=== PATIENT | female | born 1950 | race Caucasian/White ===

== ENCOUNTER → 2016-05-07 | Outpatient (CLI) | payer BC, MEDICARE ==
[~2016-05-07] MED LIST: APRISO0.375 GM PO; PREDNISONE20 MG PO; VENTOLIN0.09 MG IH
== END ==
LOC: MC.RAD 13:32
DX: Z12.31 Encounter for screening mammogram for malignant neoplasm of breast (principal)

== ENCOUNTER → 2019-02-01 | Outpatient (CLI) | payer BC | LOC: MC.RAD 10:23 | DX: Z12.31 Encounter for screening mammogram for malignant neoplasm of breast (principal) ==

== ENCOUNTER → 2021-04-01 | Outpatient (CLI) | payer BC | LOC: MC.RAD 13:05 | DX: Z12.31 Encounter for screening mammogram for malignant neoplasm of breast (principal) ==

== ENCOUNTER → 2023-06-16 | Outpatient (CLI) | payer MEDICARE | LOC: MC.RAD 13:03 | DX: Z12.31 Encounter for screening mammogram for malignant neoplasm of breast (principal) ==

== ENCOUNTER 2023-08-09 15:18 | Inpatient (IN) | payer MEDICARE, BC ==
[~2023-08-09] VITALS: Ht 160 cm; Wt 55.0 kg
[~2023-08-09 15:18] MED LIST changes: +PREDNISONE10 MG PO; -PREDNISONE20 MG PO
[2023-08-09 15:33] VITALS: BP 102/66; PULSE 67; TEMP 97.7
[2023-08-09] MEDS ORDERED: VITAMIN D31000 IU PO (15:57)
[2023-08-09] MEDS ORDERED: NS 1,000 ML IV SCH (16:15)
[2023-08-09] MEDS ORDERED: Acetaminophen 500 MG TAB PO PRN (16:15)
[2023-08-09] MEDS ORDERED: Ondansetron 4 MG/2 ML VIAL IV PRN (16:15)
[2023-08-09] MEDS ORDERED: methylPREDNISolone Sod Succ 125 MG/2 ML VIAL IV SCH (16:15)
--- NOTE | 2023-08-09 16:29 | NUR ---
pt arrived to floor at 1525. pt was direct admit from home. alert and orientedx4. no complaints of pain at this time but pain is in the lower abdomen when it does come and is usally about a 6 or 7/10. assessed pt. no skin issues. no other complaints at this time. call light within reach.
[2023-08-09 16:37] VITALS: BP_SYST 102
[2023-08-09] MEDS ORDERED: oxyCODONE 5 MG TAB PO PRN (16:45)
[2023-08-09 17:28] LABS: HEMOGLOBIN 11.3 g/dl (12.5-16.0); MEAN CELL VOLUME 85 fl (80.0-100.0); MEAN CORPUSCULAR HEMOGLOBIN 28 pg (27-31); MEAN CORPUSCULAR HGB CONC 32 g/dl (33.0-37.0); MEAN PLATELET VOLUME 9.3 fl (7.4-10.4); PLATELET COUNT 441 K/mm3 (130-400); RED BLOOD COUNT 4.11 M/mm3 (4.10-5.30); REDCELL DISTRIBUTION WIDTH-CV 13.6 % (11.5-14.5)
[2023-08-09 17:32] LABS: HEMATOCRIT 34.9 % (37.0-47.0)
--- NOTE | 2023-08-09 17:41 | NUR ---
1300-DR. LAWSON CALLED REQUESTING TO SPEAK WITH HOSPITALIST FOR POSSIBLE DIRECT ADMISSION FOR PATIENT DUE TO FAILED OUTPATIENT TREATMENT FOR ULCERATIVE COLITIS. CALL TRANSFERRED TO DR. HANSON WHO ACCEPTS PATIENT FOR INPATIENT STATUS. PATIENT WILL COME VIA POV FROM HOME.
[2023-08-09 17:53] LABS: ERYTHROCYTE SEDIMENTATION RATE 15 mm/hr (0-30)
[2023-08-09 17:54] LABS: ALBUMIN 2.5 g/dL (3.4-4.8); BILIRUBIN,TOTAL 0.7 mg/dL (0.2-1.2); C-REACTIVE PROTEIN 4.78 mg/dL (0.00-0.50); CALCIUM 9.7 mg/dL (8.4-10.2); CREATININE, serum 0.83 mg/dL (0.57-1.11); MAGNESIUM 1.9 mg/dL (1.6-2.6); POTASSIUM 4.1 mEq/L (3.5-4.5); TOTAL PROTEIN 5.9 g/dl (6.2-8.1)
[2023-08-09 18:02] LABS: BAND 2 % (0-10); LYMPHOCYTE 9 % (20.0-51.0); NEUTROPHILS 88 % (42.0-75.2)
[2023-08-09 18:03] LABS: PLATELET ESTIMATE INCREASED (NORMAL)
[2023-08-09 19:36] VITALS: BP 112/69; PULSE 60; TEMP 98
[2023-08-09 20:28] VITALS: BP_SYST 112
--- NOTE | 2023-08-09 20:32 | NUR ---
PT A&O X4 LAYING IN BED. VSS. PT REPORTS X4 LOOSE STOOLS IN THE LAST HOUR, PT REPORTS THIS IS HER NORMAL. DENIES PAIN OR N/V. NS AT 100ML/HR INFUSING TO LEFT AC. PT DENYING FURTHER NEEDS. CALL LIGHT IN REACH
[2023-08-09] MEDS ORDERED: Melatonin 3 MG TAB PO SCH (21:00)
[2023-08-09 23:50] VITALS: BP 103/60; PULSE 52; TEMP 97.6
[2023-08-10] VITALS (12 sets, daily range): BP systolic 93–122; BP diastolic 47–70; PULSE 48–82; TEMP 97.7–98.5
--- NOTE | 2023-08-10 05:27 | NUR ---
PT LAYING IN BED. REPORTS NOT SLEEPING AT ALL. DENYING PAIN OR N/V. PT STATES SHE HAD 3 MORE WATERY SLOAN STOOLS THROUGHOUT THE NIGHT, STATES THEY ARE DECREASING IN AMOUNT. DENYING OTHER NEEDS. CALL LIGHT IN REACH
[2023-08-10 06:28] LABS: BASO % 0.3 % (0.0-2.0); GRAN # 5.8 K/mm3 (1.4-6.5); GRAN % 77.7 % (42.2-75.2); HEMOGLOBIN 11.8 g/dl (12.5-16.0); LYMPH # 1.1 K/mm3 (1.2-3.4); LYMPH % 14.2 % (20.0-51.0); MEAN CELL VOLUME 86 fl (80.0-100.0); MEAN CORPUSCULAR HEMOGLOBIN 28 pg (27-31); MEAN CORPUSCULAR HGB CONC 33 g/dl (33.0-37.0); MEAN PLATELET VOLUME 9.6 fl (7.4-10.4); MONO # 0.5 K/mm3 (0.1-0.6); MONO % 7.3 % (1.7-9.3); PLATELET COUNT 488 K/mm3 (130-400); RED BLOOD COUNT 4.22 M/mm3 (4.10-5.30); REDCELL DISTRIBUTION WIDTH-CV 13.8 % (11.5-14.5)
[2023-08-10 06:37] LABS: HEMATOCRIT 36.1 % (37.0-47.0)
[2023-08-10 06:42] LABS: CALCIUM 9.4 mg/dL (8.4-10.2); CREATININE, serum 0.81 mg/dL (0.57-1.11); POTASSIUM 4.3 mEq/L (3.5-4.5)
--- NOTE | 2023-08-10 08:43 | NUR ---
PT RESTING IN BED, ALERT AND ORIENTEDX4. NO COMPLAINTS OF PAIN AT THIST TIME. PT STATES SHE HAS BEEN A LITTLE NAUSEOUS OFF AND ON BUT NOT ENOUGH TO NEED ANY MEDS. PT STATES SHE HAD SEVERAL BOWEL MOVEMENTS OVER NIGHT AND HAS HAD ONE SINCE 0700. BOWEL MOVEMENTS ARE LIQUID AND BLOODY. PT TOLERATED BREAKFAST. ASSESSED PT. NO MEDS TO GIVE. IV FLUIDS RUNNING. NO OTHER COMPLAINTS AT THIS TIME. CALL LIGHT WITHIN REACH.
--- NOTE | 2023-08-10 10:20 | NUR ---
GAVE REPORT TO MEDICAL NURSEMc ESCORTED PT TO ROOM 318.
--- NOTE | 2023-08-10 10:45 | NUR ---
PT ESCORTED TO ROOM FROM SURGICAL, BELONGINGS AT BEDSIDE. NS RUNNING AT 100 MLS/HR IN LEFT AC. PT DENIES PAIN AT THIS TIME. PT REPORTS JUST HAVING A LARGE LOOSE BOWEL MOVEMENT, DENIES BLOOD AND STATES THAT ABDOMEN WAS PAINFUL BEFORE BOWEL MOVEMENT AND FELT RELIEF AFTER. PT INDEPENDENT IN ROOM, GAIT STEADY AND DENIES NEEDS AT THIS TIME. BED IN LOWEST POSITION, CALL LIGHT IN REACH
--- NOTE | 2023-08-10 16:14 | NUR ---
Flight Mechanic met with patient to discuss discharge planning. Patient lives in [place] with her , Lm (ph#[phone]) and sees Dr. Mooney for primary care. Patient gets medications from [facility] and can normally afford them, however she stated she is going to be started on an expensive medication soon that they are awaiting prior auth on. Patient has a cane that she uses as needed and is normally independent with ADLS. Patient does not have DPOA-HC and is not interested in one at this time. Discharge Plan: Home
--- NOTE | 2023-08-10 22:10 | NUR ---
PATIENT RESTING IN BED WITH ALL LIGHTS OFF WITH TV OFF WITH NO FAMILY PRESENT WITH NO ACUTE DISTRESS NOTED. PATIENT EASILY AROUSED. PATIENT ON ROOM AIR. NS INFUSING INTO LEFT AC WITH NO COMPLICATIONS NOTED. ASSESSMENT AND MEDICATION ADMINISTRATION COMPLETED AT THIS TIME. PATIENT REFUSED MELATONIN. PATIENT TOLERATED WELL. PATIENT DENIES ANY OTHER NEEDS AT THIS TIME. BED IN LOW POSITION IH WHEELS LOCKED WITH RAILS UP X3 AND CALL LIGHT WITHIN REACH.
[2023-08-11] VITALS (9 sets, daily range): BP systolic 97–129; BP diastolic 52–70; PULSE 47–62; TEMP 97.7–98.3
[2023-08-11 06:18] LABS: HEMOGLOBIN 10.5 g/dl (12.5-16.0); MEAN CELL VOLUME 85 fl (80.0-100.0); MEAN CORPUSCULAR HEMOGLOBIN 27 pg (27-31); MEAN CORPUSCULAR HGB CONC 32 g/dl (33.0-37.0); MEAN PLATELET VOLUME 9.9 fl (7.4-10.4); PLATELET COUNT 393 K/mm3 (130-400); RED BLOOD COUNT 3.86 M/mm3 (4.10-5.30); REDCELL DISTRIBUTION WIDTH-CV 13.7 % (11.5-14.5)
[2023-08-11 06:21] LABS: HEMATOCRIT 32.7 % (37.0-47.0)
[2023-08-11 06:33] LABS: CALCIUM 9.3 mg/dL (8.4-10.2); CREATININE, serum 0.68 mg/dL (0.57-1.11); POTASSIUM 4.3 mEq/L (3.5-4.5)
[2023-08-11 07:17] LABS: BAND 51 % (0-10); LYMPHOCYTE 10 % (20.0-51.0); NEUTROPHILS 30 % (42.0-75.2); PLATELET ESTIMATE NORMAL (NORMAL)
--- NOTE | 2023-08-11 07:45 | NUR ---
Patient up ambulating in the room independently. A&Ox4. VSS. IV CDI, fluids infusing. Denies pain and discomfort. Call light within reach
--- NOTE | 2023-08-11 14:00 | NUR ---
Pencil Maker spoke with patient's RN who advised she is independent in the room.
--- NOTE | 2023-08-11 21:45 | NUR ---
PATIENT RESTING IN BED WITH ALL LIGHT OFF WITH TV OFF WITH NO FAMILY PRESENT WITH NO ACUTE DISTRESS NOTED. PATIENT ALERT & ORIENTED X4. PATIENT ON ROOM AIR. NS INFUSING INTO LEFT AC WITH NO COMPLICATIONS NOTED. ASSESSMENT AND MEDICATION ADMINISTRATION COMPLETED AT THIS TIME. PATIENT TOLERATED WELL. PATIENT DENIES ANY NEEEDS. BED IN LOW POSITION WITH WHEELS LOCKED WITH RAILS UP X3 AND CALL LIGHT WITHIN REACH.
[2023-08-12] VITALS (11 sets, daily range): BP systolic 102–137; BP diastolic 55–71; PULSE 45–56; TEMP 97.6–97.9
[2023-08-12 07:21] LABS: CALCIUM 9.6 mg/dL (8.4-10.2); CREATININE, serum 0.69 mg/dL (0.57-1.11)
[2023-08-12 07:36] LABS: HEMOGLOBIN 11.2 g/dl (12.5-16.0); MEAN CELL VOLUME 86 fl (80.0-100.0); MEAN CORPUSCULAR HEMOGLOBIN 27 pg (27-31); MEAN CORPUSCULAR HGB CONC 32 g/dl (33.0-37.0); MEAN PLATELET VOLUME 10.3 fl (7.4-10.4); PLATELET COUNT 395 K/mm3 (130-400); REDCELL DISTRIBUTION WIDTH-CV 13.8 % (11.5-14.5)
[2023-08-12 07:46] LABS: HEMATOCRIT 35.3 % (37.0-47.0)
[2023-08-12 08:50] LABS: BAND 36 % (0-10); LYMPHOCYTE 12 % (20.0-51.0); METAMYELOCYTE 2 % (0-0); NEUTROPHILS 47 % (42.0-75.2); PLATELET ESTIMATE NORMAL (NORMAL)
--- NOTE | 2023-08-12 10:00 | NUR ---
patient alert and oriented x4. patient denies pain at this time. Patient reports still having bloody stools. patient on room air. IV to left AC flushing well/ no drainage. call light within reach. bed at lowest position.
--- NOTE | 2023-08-12 17:48 | NUR ---
PATIENT HAD A LOSE BROWN BOWEL MOVEMENT NO BRIGHT RED BLOOD.
[2023-08-13] VITALS (13 sets, daily range): BP systolic 106–135; BP diastolic 54–71; PULSE 45–56; TEMP 97.5–98.2
[2023-08-13 07:07] LABS: HEMATOCRIT 36.2 % (37.0-47.0); HEMOGLOBIN 11.8 g/dl (12.5-16.0); MEAN CELL VOLUME 85 fl (80.0-100.0); MEAN CORPUSCULAR HEMOGLOBIN 28 pg (27-31); MEAN CORPUSCULAR HGB CONC 33 g/dl (33.0-37.0); PLATELET COUNT 384 K/mm3 (130-400); RED BLOOD COUNT 4.28 M/mm3 (4.10-5.30); REDCELL DISTRIBUTION WIDTH-CV 13.8 % (11.5-14.5)
[2023-08-13 07:08] LABS: CALCIUM 8.4 mg/dL (8.4-10.2); CREATININE, serum 0.77 mg/dL (0.57-1.11); POTASSIUM 3.9 mEq/L (3.5-4.5)
--- NOTE | 2023-08-13 07:50 | NUR ---
PATIENT ALERT AND ORIENTED X4. PATIENT REPORTS 710 ABDOMINAL/ CRAMPING PAIN. PATIENT REFUSED THIS NURSE TO BRING PAIN MEDICAITON AT THIS TIME. PATIENT REPORTS HAVING AN EPISODE OF VOMITING AFTER ADMINISTRATION OF NIGHT ENEMA. PATIENT REPORTS HAVING MORE CRAMPING PAINS AFTER ENEMA THROUGHOUT THE NIGHT. PATIENT REPORTS EXPLOSIVE DIARRHEA WITH TARRY LOSE STOOLS AND SOME BRIGHT BLOOD APPROXIMATELY 2HOURS AFTER ENEMA LAST NIGHT. PATIENT REPORTS FEELING NAUSEOUS THIS MORNING. FLUIDS RUNNING PER ORDER, PATIENT REPORTS FEELING LIGHTHEADED AND WEAK THIS MORNING. PATIENT ON ROOM AIR. CALL LIGHT WITHIN REACH. BED AT LOWEST POSITION.
[2023-08-13 09:35] LABS: BAND 44 % (0-10); LYMPHOCYTE 11 % (20.0-51.0); METAMYELOCYTE 1 % (0-0); NEUTROPHILS 37 % (42.0-75.2); NUCLEATED RED BLOOD CELL 1 (0-6); PLATELET ESTIMATE NORMAL (NORMAL)
--- NOTE | 2023-08-13 16:00 | NUR ---
Report received from JANNY Demarco. Pt resting in bed with no complaints. Call light within reach.
[2023-08-14 00:20] VITALS: BP_SYST 119
[2023-08-14 03:25] VITALS: BP 115/65; PULSE 50; TEMP 98.1
[2023-08-14 04:20] VITALS: BP_SYST 115
--- NOTE | 2023-08-14 07:13 | NUR ---
Bedside report received from JANNY Avelar. Pt resting in bed awake with no complaints. Call light within reach.
[2023-08-14 07:47] VITALS: BP 126/69; PULSE 52; TEMP 97.6
[2023-08-14] MEDS ORDERED: PREDNISONE10 MG PO (09:04)
[2023-08-14] MEDS ORDERED: ZOFRAN ODT4 MG PO (09:06)
[2023-08-14] MEDS ORDERED: TYLENOL 500MG500 MG PO (09:06)
--- NOTE | 2023-08-14 09:07 | NUR ---
SW discussed patient with attending. Patient is stable for disscharge to home today. SW met with patient to discuss Medicare IM form, patient agreeable to discharge and signed form. Original on chart, copy to patient. Discharge plan: Home
[2023-08-14] MEDS ORDERED: FERROUS GL325 MG/TAB PO (09:08)
--- NOTE | 2023-08-14 09:20 | NUR ---
Pt awake in bed in a pleasant mood. Shift assessment completed. Pt is A&O x4. VSS. Pt states that she had one bloody stool overnight but has not had one this AM. Pt denies pain rating 0/10. INT to LAC patent with no swelling, redness, or drainage. Pt has no request at this time. Call light within reach.
[2023-08-14 09:22] VITALS: BP_SYST 126
--- NOTE | 2023-08-14 10:37 | NUR ---
Discharge paperwork provided to pt and pt verbalized understanding of discharge instructions. INT to LAC discontinued with tip intact, pt tolerated well with no complaints. Telemetry discontinued. Pt is leaving facility with spouse back to home.
== END 2023-08-14 10:38 | disposition home or self-care (01) | DRG 385 ==
LOC: SURG 15:18 → MEDICAL 08-10 10:21
PROVIDERS: Physician Assistant; ADMIT Internal Medicine
DX: K51.811 Other ulcerative colitis with rectal bleeding (principal); E43 Unspecified severe protein-calorie malnutrition; J45.909 Unspecified asthma, uncomplicated; R00.1 Bradycardia, unspecified; I71.20 Thoracic aortic aneurysm, without rupture, unspecified; D50.0 Iron deficiency anemia secondary to blood loss (chronic); G47.00 Insomnia, unspecified; Z79.899 Other long term (current) drug therapy; Z88.1 Allergy status to other antibiotic agents; Z88.0 Allergy status to penicillin; Z88.2 Allergy status to sulfonamides; Z88.7 Allergy status to serum and vaccine; Z88.8 Allergy status to other drugs, medicaments and biological substances; Z23 Encounter for immunization; Z68.21 Body mass index [BMI] 21.0-21.9, adult
CPT/HCPCS: J1650; J2919; J7030

== ENCOUNTER 2023-08-31 13:12 | Outpatient (CLI) | payer MEDICARE, BC ==
[~2023-08-31] VITALS: Ht 160 cm; Wt 54.0 kg
[~2023-08-31 13:12] MED LIST changes: +FERROUS GL325 MG/TAB PO; +TYLENOL 500MG500 MG PO; +VITAMIN D31000 IU PO; +ZOFRAN ODT4 MG PO
[2023-08-31 13:59] LABS: BASO % 0.4 % (0.0-2.0); EOS % 0.2 % (0.0-4.0); GRAN # 4.9 K/mm3 (1.4-6.5); GRAN % 88.4 % (42.2-75.2); HEMOGLOBIN 10.7 g/dl (12.5-16.0); LYMPH # 0.4 K/mm3 (1.2-3.4); LYMPH % 6.5 % (20.0-51.0); MEAN CELL VOLUME 88 fl (80.0-100.0); MEAN CORPUSCULAR HEMOGLOBIN 28 pg (27-31); MEAN CORPUSCULAR HGB CONC 32 g/dl (33.0-37.0); MEAN PLATELET VOLUME 8.7 fl (7.4-10.4); MONO # 0.2 K/mm3 (0.1-0.6); MONO % 3.6 % (1.7-9.3); PLATELET COUNT 294 K/mm3 (130-400); RED BLOOD COUNT 3.87 M/mm3 (4.10-5.30); REDCELL DISTRIBUTION WIDTH-CV 15.9 % (11.5-14.5)
[2023-08-31 14:16] LABS: ALBUMIN 2.6 g/dL (3.4-4.8); BILIRUBIN,TOTAL 0.8 mg/dL (0.2-1.2); CALCIUM 9.2 mg/dL (8.4-10.2); CREATININE, serum 0.82 mg/dL (0.57-1.11); POTASSIUM 4.4 mEq/L (3.5-4.5); TOTAL PROTEIN 5.7 g/dl (6.2-8.1)
[2023-08-31 14:24] VITALS: BP 96/64; PULSE 63; TEMP 98.6
[2023-08-31] MEDS ORDERED: diphenhydrAMINE 50 MG/ML 1 ML VIAL IV ONE (14:30)
[2023-08-31] MEDS ORDERED: Acetaminophen 500 MG TAB PO ONE (14:30)
[2023-08-31] MEDS ORDERED: methylPREDNISolone Sod Succ 125 MG/2 ML VIAL IV ONE (14:30)
[2023-08-31] MEDS ORDERED: Vedolizumab 300 MG in NS 250 ML IV ONE (15:00)
[2023-08-31] MEDS ORDERED: CANASA 1000MG1000 MG RC (17:35)
== END 2023-08-31 18:00 ==
LOC: EUO 13:12
PROVIDERS: Internal Medicine Gastroenterology
DX: K51.811 Other ulcerative colitis with rectal bleeding (principal)
CPT/HCPCS: J1200; J2919; J3380; J7050

== ENCOUNTER 2023-10-12 12:47 | Outpatient (CLI) | payer MEDICARE, BC ==
[~2023-10-12] VITALS: Ht 160 cm; Wt 56.0 kg
[~2023-10-12 12:47] MED LIST changes: +CANASA 1000MG1000 MG RC
[2023-10-12] MEDS ORDERED: VENTOLIN0.09 MG IH (13:08)
[2023-10-12] MEDS ORDERED: ENTYVIO IV (13:13)
[2023-10-12 13:21] LABS: ALBUMIN 2.6 g/dL (3.4-4.8); BILIRUBIN,TOTAL 0.9 mg/dL (0.2-1.2); CALCIUM 8.4 mg/dL (8.4-10.2); CREATININE, serum 0.8 mg/dL (0.57-1.11); POTASSIUM 3.8 mEq/L (3.5-4.5)
[2023-10-12 13:24] LABS: HEMOGLOBIN 10.9 g/dl (12.5-16.0); MEAN CELL VOLUME 87 fl (80.0-100.0); MEAN CORPUSCULAR HEMOGLOBIN 28 pg (27-31); MEAN CORPUSCULAR HGB CONC 32 g/dl (33.0-37.0); PLATELET COUNT 376 K/mm3 (130-400); RED BLOOD COUNT 3.92 M/mm3 (4.10-5.30); REDCELL DISTRIBUTION WIDTH-CV 15.1 % (11.5-14.5)
[2023-10-12 13:51] VITALS: BP 105/67; PULSE 77; TEMP 99.1
[2023-10-12] MEDS ORDERED: Acetaminophen 500 MG TAB PO ONE (14:00)
[2023-10-12] MEDS ORDERED: methylPREDNISolone Sod Succ 125 MG/2 ML VIAL IV ONE (14:00)
[2023-10-12] MEDS ORDERED: Vedolizumab 300 MG in NS 250 ML IV SCH (14:00)
[2023-10-12] MEDS ORDERED: diphenhydrAMINE 50 MG/ML 1 ML VIAL IV ONE (14:00)
[2023-10-12 14:03] LABS: BAND 2 % (0-10); NEUTROPHILS 72 % (42.0-75.2)
[2023-10-12 14:04] LABS: ANISOCYTOSIS 1+; EOSINOPHIL 2 % (0-4); LYMPHOCYTE 12 % (20.0-51.0); TEAR DROP CELLS 1+
--- NOTE | 2023-10-12 15:07 | NUR ---
Pt tolerated infusion without issue. IV DC'd, site wrapped with coban. She is escorted out of dept, gait steady with cane. She is free of complaints at discharge.
== END 2023-10-12 15:08 | disposition home or self-care (01) ==
LOC: EUO 12:47
PROVIDERS: Internal Medicine Gastroenterology
DX: K51.911 Ulcerative colitis, unspecified with rectal bleeding (principal)
CPT/HCPCS: J1200; J2919; J3380; J7050

== ENCOUNTER 2023-12-07 12:38 | Outpatient (CLI) | payer MEDICARE, BC ==
[~2023-12-07] VITALS: Ht 160 cm; Wt 52.0 kg
[~2023-12-07 12:38] MED LIST changes: +ENTYVIO IV
[2023-12-07 12:58] VITALS: BP 92/60; PULSE 86; TEMP 98.2
[2023-12-07] MEDS ORDERED: XARELTO20 MG PO (13:17)
[2023-12-07 13:18] LABS: BASO # 0.1 K/mm3 (0.0-0.2); BASO % 0.8 % (0.0-2.0); EOS # 0.3 K/mm3 (0.0-0.7); EOS % 2.8 % (0.0-4.0); GRAN # 7.6 K/mm3 (1.4-6.5); GRAN % 72.8 % (42.2-75.2); HEMATOCRIT 34.1 % (37.0-47.0); LYMPH # 1.7 K/mm3 (1.2-3.4); LYMPH % 16.2 % (20.0-51.0); MEAN CELL VOLUME 81 fl (80.0-100.0); MEAN CORPUSCULAR HEMOGLOBIN 26 pg (27-31); MEAN CORPUSCULAR HGB CONC 32 g/dl (33.0-37.0); MEAN PLATELET VOLUME 8.8 fl (7.4-10.4); MONO # 0.7 K/mm3 (0.1-0.6); MONO % 6.9 % (1.7-9.3); PLATELET COUNT 611 K/mm3 (130-400); RED BLOOD COUNT 4.23 M/mm3 (4.10-5.30); REDCELL DISTRIBUTION WIDTH-CV 14.4 % (11.5-14.5)
[2023-12-07 13:31] LABS: ALBUMIN 2.4 g/dL (3.4-4.8); BILIRUBIN,TOTAL 0.7 mg/dL (0.2-1.2); CALCIUM 9.2 mg/dL (8.4-10.2); CREATININE, serum 0.86 mg/dL (0.57-1.11); POTASSIUM 3.6 mEq/L (3.5-4.5); TOTAL PROTEIN 6.4 g/dl (6.2-8.1)
[2023-12-07] MEDS ORDERED: methylPREDNISolone Sod Succ 125 MG/2 ML VIAL IV ONE (14:00)
[2023-12-07] MEDS ORDERED: Vedolizumab 300 MG in NS 250 ML IV SCH (14:00)
[2023-12-07] MEDS ORDERED: diphenhydrAMINE 50 MG/ML 1 ML VIAL IV ONE (14:00)
[2023-12-07] MEDS ORDERED: Acetaminophen 500 MG TAB PO ONE (14:00)
--- NOTE | 2023-12-07 15:00 | NUR ---
PT TOLERATED INFUSION WELL. PT REMAINED FREE FROM ACUTE CONCERNS AND COMPLAINTS. IV DISCONTINUED UPON DISCHARGE. PT ASSISTED TO MAIN LOBBY VIA WHEELCHAIR.
== END 2023-12-07 15:01 | disposition home or self-care (01) ==
LOC: EUO 12:38
PROVIDERS: Internal Medicine Gastroenterology
DX: K51.911 Ulcerative colitis, unspecified with rectal bleeding (principal)
CPT/HCPCS: J1200; J2919; J3380; J7050